=== PATIENT | female | born 1985 | race Two or more races ===

== ENCOUNTER → 2018-06-04 | Day surgery (SDC) | payer BC ==
[~2018-06-04] MED LIST: AUGMENTIN 875-1 EACH PO; CEFTRIAXONE SOD 1 GM VIAL ONE; FENTANYL CITRATE/PF 100MCG/2 ML INJ ONE; HYDROMORPHONE 2MG/ML 2 MG/ML ML ONE; INHALER IH; LIDOCAINE HCL 2% LOCAL INJ 5 ML SDV VIAL INJ ONE; MIDAZOLAM HCL 2 MG/2 ML VIAL ONE; MORPHINE SULFATE 2 MG/ML SYR ONE; MOTRIN200 MG PO; ONDANSETRON HCL INJ 2 MG/ML VIAL ONE; PHENYLEPHRINE HCL 1% 10 MG/ML VIAL ONE; PROPOFOL IV EMULSION 10 MG/ML 50 ML VIAL ONE; SEVOFLURANE INHAL SOLN 250 ML PEN BTL ONE
[2018-06-04 10:59] LABS: BASOPHILS # (AUTO) 0.1 (0.0-0.1); BASOPHILS % 0.4 % (0.0-1.0); EOSINOPHILS # (AUTO) 0.5 (0.0-0.4); EOSINOPHILS % 3.9 % (0.0-6.0); HEMATOCRIT 37.2 % (34.2-44.1); LYMPHOCYTES # (AUTO) 3.3 (1.0-3.2); LYMPHOCYTES % 25.3 % (18.0-39.1); MEAN CORPUSCULAR HEMOGLOBIN 27.9 pg (28-32); MEAN CORPUSCULAR HGB CONC 32.3 g/dL (31-35); MEAN CORPUSCULAR VOLUME 86.5 fL (81-99); MONOCYTES # (AUTO) 0.5 (0.2-0.8); MONOCYTES % 4.2 % (4.4-11.3); NEUTROPHILS # (AUTO) 8.5 (2.1-6.9); NEUTROPHILS % 65.8 % (38.7-80.0); PLATELET COUNT 317 x10e3/uL (140-360); RED CELL DISTRIBUTION WIDTH 13.6 % (11.7-14.4)
[2018-06-04 11:22] LABS: ANION GAP 14.2 mmol/L (8-16); BLOOD UREA NITROGEN 8 mg/dL (7-26); BUN/CREATININE RATIO 12 (6-25); CALCIUM 8.3 mg/dL (8.4-10.2); CARBON DIOXIDE 22 mmol/L (22-29); CHLORIDE 101 mmol/L (98-107); CREATININE, SERUM 0.66 mg/dL (0.57-1.11); EST GLOMERULAR FILTRATION RATE > 60 ML/MIN (60-); GLUCOSE 85 mg/dL (74-118); POTASSIUM 4.2 mmol/L (3.5-5.1); SODIUM 133 mmol/L (136-145)
[2018-06-04 13:49] VITALS: BP 100/73
--- NOTE | 2018-06-04 14:37 | Operative Report ---
DATE OF PROCEDURE: June 04, 2018 PREOPERATIVE DIAGNOSIS: Left axillary abscess secondary to hidradenitis. POSTOPERATIVE DIAGNOSIS: Left axillary abscess secondary to hidradenitis. OPERATION PERFORMED: Incision and drainage of left axillary abscess. ANESTHESIA: General. COMPLICATIONS: None. ESTIMATED BLOOD LOSS: Minimal. DESCRIPTION OF PROCEDURE: With the patient lying in bed in the supine position, under good general anesthesia, the left axilla and chest were prepped with Betadine solution and draped in the usual manner. There was a bulging abscess at the left axilla that extended from one side of the axilla anteriorly to the other side posteriorly. A plug of skin was then removed from the bulging abscess in the anterior aspect. Immediately, a large amount of pus was encountered, and cultures were taken. All of the fluid was aspirated. The wound was then probed, and it tracked all the way down to the posterior part of the axilla. A 2nd incision was then made posteriorly. The 2 communications were fully drained. All of the purulent material was removed. All the necrotic tissue was similarly removed. After this was done, the wound was then copiously irrigated with dilute Betadine solution. A 1/4-inch [place]ndon drain was placed in the wound in a ring type of fashion like a seton, and the wound was then packed with iodoform gauze. A dressing was applied. The sponge, lap and needle count was correct. Patient tolerated the procedure well and returned to the recovery room in stable condition. Job#: [id number]
== END | disposition home or self-care (01) ==
LOC: OR 09:28
PROVIDERS: ATTEND Surgery
DX: L73.2 Hidradenitis suppurativa (principal); L02.412 Cutaneous abscess of left axilla; J45.909 Unspecified asthma, uncomplicated; E66.01 Morbid (severe) obesity due to excess calories; Z88.1 Allergy status to other antibiotic agents; Z88.3 Allergy status to other anti-infective agents
CPT/HCPCS: 10061; 36415; 80048; 81025; 85025; 87071; 87075; 87205; J0696; J1170; J2001; J2250; J2270; J2370; J2405